=== PATIENT | female | born 1975 | race Caucasian/White ===

== ENCOUNTER 2020-09-11 08:00 | Outpatient (CLI) | payer BC ==
--- NOTE | 2020-09-11 16:00 | XRAY Report ---
PROCEDURE: Wrist 3 View LT INDICATIONS: LEFT WRIST CONTUSION TECHNIQUE: 3 views of the wrist were acquired. COMPARISON: None. FINDINGS: Bones: No fractures or dislocations. No suspicious bony lesions. Ulnar negative variant. Soft tissues: No suspicious soft tissue calcifications. IMPRESSION: 1. No fracture or dislocation. 2. Ulnar negative variant. 3. If clinical symptoms persist or clinical suspicion for internal derangement is high, CT or MRI is suggested for follow-up. Reviewed by: Chuckie Rodrigeuz MD on 09/11/2020 3:58 PM PDT Approved by: Chuckie Rodriguez MD on 09/11/2020 3:58 PM PDT Station ID: [id number]
--- NOTE | 2020-09-11 16:06 | XRAY Report ---
PROCEDURE: Humerus LT INDICATIONS: LEFT HUMERUS CONTUSION TECHNIQUE: 3 views of the humerus were acquired. COMPARISON: Correlation is made with the accompanying wrist plain films, 09/11/2020. FINDINGS: Bones: No fractures or dislocations. No suspicious bony lesions. Soft tissues: No suspicious soft tissue calcifications. IMPRESSION: Negative for fracture. Reviewed by: Brady Lopez MD on 09/11/2020 3:04 PM CHUCK Approved by: Brady Lopez MD on 09/11/2020 3:04 PM CHUCK Station ID: [id number]
== END 2020-09-11 23:59 | disposition home or self-care (01) ==
LOC: DI.S 08:00
PROVIDERS: ATTEND Physician Assistant Medical
DX: S40.029A Contusion of unspecified upper arm, initial encounter (principal)

== ENCOUNTER 2023-01-23 08:00 | Outpatient (CLI) | payer BC ==
[2023-01-23 19:47] LABS: BILIRUBIN,URINE NEGATIVE (NEGATIVE); GLUCOSE, URINE (UA) NEGATIVE (NEGATIVE); KETONES,URINE (UA) NEGATIVE (NEGATIVE); LEUKOCYTE ESTERASE, URINE NEGATIVE (NEGATIVE); NITRITE,URINE NEGATIVE (NEGATIVE); OCCULT BLOOD,URINE MODERATE (NEGATIVE); PROTEIN,URINE NEGATIVE (NEGATIVE); UROBILINOGEN,URINE 0.2 (NORMAL) E.U./dL (NORMAL)
[2023-01-23 19:48] LABS: CLARITY,URINE CLEAR (CLEAR)
[2023-01-23 19:58] LABS: BACTERIA,URINE Rare /HPF (None Seen); RBC,URINE 0-5 /HPF (0-5); SQUAMOUS EPITHELIAL CELL,UR RARE Squamous (<= Few); WBC,URINE 0-3 /HPF (0-5)
== END 2023-01-23 23:59 | disposition home or self-care (01) ==
LOC: LAB.S 08:00
PROVIDERS: ATTEND Emergency Medicine
DX: R30.0 Dysuria (principal)
CPT/HCPCS: 81001; 87086